=== PATIENT | male | born 1945 | race American Indian/Alaskan Native ===

== ENCOUNTER 2017-10-10 18:33 | Emergency (ER) | payer BC ==
[2017-10-10 18:49] VITALS: O2SAT 98
--- NOTE | 2017-10-10 19:22 | C.PDOC ---
History Of Present Illness 72 y/o male presents to the emergency department complaining that he has not been feeling well for the last 3 weeks. Patient states that he has issues with bowel movements and feels constipated. He also reports chest discomfort for the past week but not currently. Patient denies any fever, chills, nausea, or vomiting. Time Seen by Provider: 10/10/17 19:21 Chief Complaint (Nursing): Abdominal Pain History Per: Patient History/Exam Limitations: no limitations Onset/Duration Of Symptoms: Days Current Symptoms Are (Timing): Still Present Severity: Moderate Pain Scale Rating Of: 4 Radiation Of Pain To:: None Associated Symptoms: Chest Pain (none now), Constipation Exacerbating Factors: None Alleviating Factors: None Last Bowel Movement: Days Ago Recent travel outside of the [place]: No Additional History Per: Patient Past Medical History Reviewed: Historical Data, Nursing Documentation, Vital Signs Vital Signs: Last Vital Signs Temp 98.4 F 10/10/17 18:38 Pulse 72 10/10/17 18:38 Resp 20 10/10/17 18:38 BP 189/84 H 10/10/17 18:38 Pulse Ox 98 10/10/17 21:22 - Medical History PMH: Diabetes, HTN, Hypercholesterolemia Family History: States: No Known Family Hx - Social History Hx Tobacco Use: No Hx Alcohol Use: No Hx Substance Use: No - Immunization History Hx Tetanus Toxoid Vaccination: No Hx Influenza Vaccination: No Hx Pneumococcal Vaccination: No Review Of Systems Constitutional: Negative for: Fever, Chills Cardiovascular: Positive for: Chest Pain (none currently) Respiratory: Negative for: Shortness of Breath Gastrointestinal: Positive for: Constipation. Negative for: Nausea, Vomiting Neurological: Negative for: Weakness, Numbness Physical Exam - Physical Exam Appears: Non-toxic, No Acute Distress Skin: Warm, Dry Head: Normacephalic Eye(s): bilateral: Normal Inspection Oral Mucosa: Moist Neck: Trachea Midline, Supple Chest: Symmetrical Cardiovascular: Rhythm Regular Respiratory: No Rales, No Rhonchi, No Wheezing Gastrointestinal/Abdominal: Bowel Sounds (tympanic to percussion), Soft, No Tenderness, No Distention Extremity: Bilateral: Normal Color And Temperature Pulses: Left Dorsalis Pedis: Normal, Right Dorsalis Pedis: Normal Neurological/Psych: Oriented x3 Gait: Steady ED Course And Treatment - Laboratory Results Result Diagrams: 10/10/17 19:40 10/10/17 19:40 ECG: Interpreted By Me, Viewed By Me ECG Rhythm: Sinus Rhythm (58), 1st Degree HB, Nonspecific Changes O2 Sat by Pulse Oximetry: 98 (RA) Pulse Ox Interpretation: Normal Progress Note: Bloodwork, chest x-ray, CT abd/pel, and urinalysis ordered. IV fluids administered. Reevaluation Time: 22:41 Reassessment Condition: Improved Medical Decision Making Medical Decision Making: Upon provider reevaluation patient is feeling better, is medically stable, and requires no further treatment in the ED at this time. Patient will be discharged home with Rx for miralax . Counseling was provided and all questions were answered regarding diagnosis and need for follow up with dr tello. There is agreement to discharge plan. Return if symptoms persist or worsen. Disposition Counseled Patient/Family Regarding: Studies Performed, Diagnosis, Need For Followup, Rx Given - Disposition Referrals: Elder Tello MD [Staff Provider] - Disposition: HOME/ ROUTINE Disposition Time: 19:22 Condition: FAIR Additional Instructions: Please return if symptoms recur. Do follow up regarding left hemiscrotum soft tissue mass Prescriptions: Polyethylene Glycol 3350 [Miralax] 17 gm PO DAILY #270 ml Instructions: Acute Abdomen (Belly Pain), Adult (DC), Constipation, Adult (DC) Forms: [employer] ([place]) - Clinical Impression Clinical Impression: Abdominal pain, Constipation, Scrotal mass - Scribe Statement The provider has reviewed the documentation as recorded by the Deann Baldwin Provider Attestation: All medical record entries made by the Mikiibalix were at my direction and personally dictated by me. I have reviewed the chart and agree that the record accurately reflects my personal performance of the history, physical exam, medical decision making, and the department course for this patient. I have also personally directed, reviewed, and agree with the discharge instructions and disposition.
[2017-10-10] MEDS ORDERED: Sodium Chloride 0.9% 1,000 ML IV ONE (19:27)
[2017-10-10 19:43] LABS: BASO # 0.1 K/uL (0.0-0.2); BASO % 1.2 % (0.0-2.0); EOS # 0.2 K/uL (0.0-0.7); EOS % 4.3 % (0.0-4.0); HEMOGLOBIN 14.1 g/dL (12.0-18.0); LYMPH # 1.6 K/uL (1.0-4.3); LYMPH % 35.6 % (20.0-40.0); MEAN CELL VOLUME 89.6 fL (80.0-94.0); MEAN CORPUSCULAR HEMOGLOBIN 30.2 pg (27.0-31.0); MEAN CORPUSCULAR HGB CONC 33.7 g/dL (33.0-37.0); MEAN PLATELET VOLUME 7.8 fL (7.2-11.7); MONO # 0.6 K/uL (0.0-0.8); MONO % 12.9 % (0.0-10.0); NRBC % 0.1 % (0.0-2.0); RBC 4.66 Mil/uL (4.40-5.90); RED CELL DISTRIBUTION WIDTH 13.8 % (11.5-14.5); WHITE BLOOD COUNT 4.4 K/uL (4.8-10.8)
[2017-10-10] MEDS ORDERED: Sodium Chloride 0.9% 1,000 ML ONE (19:44)
[2017-10-10 19:51] LABS: INR 1.1; PROTHROMBIN TIME 11.5 SECONDS (9.7-12.2)
[2017-10-10 19:57] LABS: SQUAMOUS EPITHIAL < 1 /hpf (0-5); URINE BACTERIA RARE (<OCC); URINE BILIRUBIN NEGATIVE (NEGATIVE); URINE BLOOD NEGATIVE (NEGATIVE); URINE CLARITY Clear (Clear); URINE COLOR Yellow (YELLOW); URINE GLUCOSE (UA) NORMAL (Normal); URINE LEUKOCYTE ESTERASE NEG Leu/uL (Negative); URINE PROTEIN NEGATIVE (NEGATIVE); URINE UROBILINOGEN NORMAL mg/dL (0.2-1.0)
[2017-10-10 19:59] LABS: ALB/GLOB RATIO 1.1 (1.0-2.1); ALBUMIN 4.2 g/dL (3.5-5.0); CALCIUM 9.2 mg/dl (8.6-10.4); GFR AFRICAN-AMERICAN > 60; GFR NON-AFRICAN AMERICAN 50; LIPASE 92 U/L (23-300)
[2017-10-10 20:04] LABS: ALT/SGPT 13 U/L (21-72); AST/SGOT 24 U/L (17-59); BLOOD UREA NITROGEN 12 mg/dL (9-20)
[2017-10-10 20:10] LABS: B-TYPE NATRIURETIC PEPTIDE 250 pg/mL (0-900)
[2017-10-10] MEDS ORDERED: Iodixanol 320 MG/ML 100 ML BOTTLE IV ONE (20:35)
[2017-10-10 22:48] VITALS: BP 160/79; PULSE 75; RESP 18; TEMP 98.2
--- NOTE | 2017-10-11 07:17 | CT ---
Date of service: 10/10/2017 PROCEDURE: CT Abdomen and Pelvis without intravenous contrast HISTORY: Diffuse abdominal pain COMPARISON: None. TECHNIQUE: Multiple contiguous axial images were performed through the abdomen and pelvis without the use of intravenous contrast. Subsequently, sagittal and coronal reformatted images were obtained. Radiation dose: Total exam DLP = 824 mGy-cm. This CT exam was performed using one or more of the following dose reduction techniques: Automated exposure control, adjustment of the mA and/or kV according to patient size, and/or use of iterative reconstruction technique. FINDINGS: LOWER THORAX: Atelectasis at the lung bases. Small emphysematous bullae at the lung bases. LIVER: Unremarkable. No gross lesion or ductal dilatation. GALLBLADDER AND BILE DUCTS: Unremarkable. PANCREAS: Unremarkable. No gross lesion or ductal dilatation. SPLEEN: Unremarkable. ADRENALS: Unremarkable. No mass. KIDNEYS AND URETERS: Unremarkable. No hydronephrosis. No solid mass. VASCULATURE: Unremarkable. No aortic aneurysm. BOWEL: Unremarkable. No obstruction. No gross mural thickening. APPENDIX: No findings to suggest acute appendicitis. PERITONEUM: Unremarkable. No free fluid. No free air. LYMPH NODES: Unremarkable. No enlarged lymph nodes. BLADDER: Unremarkable. REPRODUCTIVE: Heterogeneous and prominent prostate. BONES: Degenerative changes in the spine. Bridging sclerosis at the right SI joint. OTHER FINDINGS: Ovoid fluid collection and perhaps a soft tissue mass measuring approximately 4.7 centimeters demonstrating a Hounsfield unit attenuation of 18 in the left hemiscrotum/adjacent to the scrotum. IMPRESSION: Ovoid fluid collection and perhaps a soft tissue mass measuring approximately 4.7 centimeters demonstrating a Hounsfield unit attenuation of 18 in the left hemiscrotum/adjacent to the scrotum. Clinical correlation. These findings were preliminarily reported at 10:23 p.m. on 10/10/[address] Coral Garay from [facility].
--- NOTE | 2017-10-11 09:24 | RAD ---
Chest x-ray single frontal view History: Chest pain. Comparison: 01/22/2012 Findings: Mild venous congestion. Right hilar prominence. Right paratracheal opacity may represent prominent vasculature. Heart size within normal limits. Degenerative changes in the spine. Impression: Mild venous congestion. Right hilar prominence. Right paratracheal opacity may represent prominent vasculature.
--- NOTE | 2017-10-13 08:10 | CARD ---
APPROVED REPORT Date of service: 10/10/2017 EKG Measurement Heart [id number] NE 200P14 [id number] <Conclusion> Sinus bradycardia Moderate voltage criteria for LVH, may be normal variant Borderline ECG
== END 2017-10-10 22:55 | disposition home or self-care (01) ==
LOC: C.ER 18:33
DX: R10.9 Unspecified abdominal pain (principal); K59.00 Constipation, unspecified; N50.9 Disorder of male genital organs, unspecified; I10 Essential (primary) hypertension; E11.9 Type 2 diabetes mellitus without complications; E78.00 Pure hypercholesterolemia, unspecified
CPT/HCPCS: 71045; 74177; 80053; 81001; 83690; 83880; 84443; 84484; 85025; 85610; 85730; 93005; 99284; J7030; Q9967